=== PATIENT | male | born 1990 | race Caucasian/White ===

== ENCOUNTER 2017-02-02 13:09 | Emergency (ER) | payer BC ==
[2017-02-02 13:44] VITALS: BP 137/90
--- NOTE | 2017-02-02 14:46 | UC ---
[facility] Dental HPI - HPI Summary HPI Summary: Pt c/o left upper front tooth pain, and swelling. Pt has not had dental insurance for a year and has poor dentition. Pt states that upper left tooth and facial swelling. - History of Current Complaint Chief Complaint: UCDentalProblem Stated Complaint: TOOTH ACHE Time Seen by Provider: 02/02/17 14:13 Hx Obtained From: Patient Onset/Duration: Gradual Onset Pain Intensity: 10 Pain Scale Used: 0-10 Numeric Aggravating Factor(s): Chewing Alleviating Factor(s): Nothing Related History: Swelling - Allergies/Home Medications Allergies/Adverse Reactions: Allergies Allergy/AdvReac Type Severity Reaction Status Date / Time No Known Allergies Allergy Verified 02/02/17 13:44 Home Medications: Home Medications Ibuprofen TAB* [Advil TAB*] 400 mg PO Q6H PRN 02/02/17 [History Confirmed ] PMH/Surg Hx/FS Hx/Imm Hx Previously Healthy: Yes Other History Of: Negative For: HIV, Hepatitis B, Hepatitis C - Surgical History Surgical History: Yes Surgery Procedure, Year, and Place: right rotator cuff - Family History Known Family History: Positive: Cardiac Disease - Social History Occupation: Employed Full-time Lives: With Family Alcohol Use: Occasionally Substance Use Type: None Smoking Status (MU): Light Every Day Tobacco Smoker Type: Cigarettes Amount Used/How Often: 5 per day Length of Time of Smoking/Using Tobacco: 12 years - Immunization History Most Recent Influenza Vaccination: none Hx Tetanus, Diphtheria Vaccination: Yes Review of Systems Constitutional: Negative Skin: Negative Eyes: Negative ENT: Dental Pain Respiratory: Negative Cardiovascular: Negative Gastrointestinal: Negative Genitourinary: Negative Motor: Negative Neurovascular: Negative Musculoskeletal: Negative Neurological: Negative Psychological: Negative Is Patient Immunocompromised?: No All Other Systems Reviewed And Are Negative: Yes Physical Exam Triage Information Reviewed: Yes Appearance: Pain Distress - mild Vital Signs: Initial Vital Signs Temp 97.9 F 02/02/17 13:37 Pulse 92 02/02/17 13:37 Resp 16 02/02/17 13:37 BP 137/90 02/02/17 13:37 Pulse Ox 98 02/02/17 13:37 Vital Signs Reviewed: Yes Eye Exam: Normal ENT Exam: Normal Dental: Positive: Percussion Tenderness @ - left upper front teeth,, Gross Decay /Caries @ - generalized poor dentition, Dental Fracture @ - left lower molar, Abscess @ - left upper front gum Neck exam: Normal Respiratory Exam: Normal Musculoskeletal Exam: Normal Neurological Exam: Normal Psychological Exam: Normal Skin Exam: Normal Dental Complaint Course/Dx - Differential Dx/Diagnosis Differential Diagnosis/Dx: Dental Abscess, Dental Caries Provider Diagnoses: detnal abscess. poor dentition Discharge - Discharge Plan Condition: Stable Disposition: HOME Prescriptions: Amoxicillin PO (*) [Amoxicillin 875 MG (*)] 875 mg PO Q12H #20 tab Ibuprofen TAB* [Motrin TAB* 800 MG] 800 mg PO Q8H PRN #30 tab PRN Reason: Pain methylPREDNISolone TAB* [Medrol TAB*] 4 - 8 mg PO .SEE TORY #1 tory Patient Education Materials: Dental Abscess (ED) Forms: *Work Release Referrals: No Primary Care Phys,NOPCP [Primary Care Provider] - If Needed Additional Instructions: Please seek follow up care from a dental care provider as soon as possible.
== END 2017-02-02 14:39 | disposition home or self-care (01) ==
LOC: UCCORT 13:09
DX: L02.91 Cutaneous abscess, unspecified (principal); F17.210 Nicotine dependence, cigarettes, uncomplicated
CPT/HCPCS: 99212; G0463

== ENCOUNTER 2017-04-03 07:15 | Emergency (ER) | payer BC ==
[2017-04-03 07:28] VITALS: BP 148/87
[2017-04-03] MEDS ORDERED: Clindamycin CAP* 150 MG PO ONE (07:44)
--- NOTE | 2017-04-03 08:02 | UC ---
[facility] HPI - HPI Summary HPI Summary: dental pain x 3 days + left side facial swelling and pain had dental infection 2 weeks ago , was placed on abx , did not finish abx no fever, no chills - History of Current Complaint Chief Complaint: UCDentalProblem Stated Complaint: ORAL COMPLAINT Time Seen by Provider: 04/03/17 07:36 Hx Obtained From: Patient Onset/Duration: Gradual Onset, Lasting Days - 3, Still Present Severity: Moderate Pain Intensity: 8 Pain Scale Used: 0-10 Numeric Aggravating Factor(s): Chewing Alleviating Factor(s): Nothing Related History: Swelling - left side of face - Allergies/Home Medications Allergies/Adverse Reactions: Allergies Allergy/AdvReac Type Severity Reaction Status Date / Time No Known Allergies Allergy Verified 04/03/17 07:22 PMH/Surg Hx/FS Hx/Imm Hx Previously Healthy: Yes Other History Of: Negative For: HIV, Hepatitis B, Hepatitis C - Surgical History Surgical History: Yes Surgery Procedure, Year, and Place: right rotator cuff - Family History Known Family History: Positive: Cardiac Disease - Social History Alcohol Use: Occasionally Substance Use Type: None Smoking Status (MU): Light Every Day Tobacco Smoker Type: Cigarettes Amount Used/How Often: 5 per day Length of Time of Smoking/Using Tobacco: 12 years - Immunization History Most Recent Influenza Vaccination: none Hx Tetanus, Diphtheria Vaccination: Yes Review of Systems Constitutional: Negative Skin: Negative Eyes: Negative ENT: Dental Pain Respiratory: Negative Cardiovascular: Negative Is Patient Immunocompromised?: No All Other Systems Reviewed And Are Negative: Yes Physical Exam Triage Information Reviewed: Yes Appearance: No Pain Distress, Well-Nourished, Pain Distress Vital Signs: Initial Vital Signs Temp 97.3 F 04/03/17 07:22 Pulse 87 04/03/17 07:22 Resp 16 04/03/17 07:22 BP 148/87 04/03/17 07:22 Pulse Ox 100 04/03/17 07:22 Vital Signs Reviewed: Yes Eyes: Positive: Conjunctiva Clear ENT: Positive: Normal ENT inspection, Hearing grossly normal, Pharynx normal Dental: Positive: Gross Decay/Caries @ - multiple, Other: - left upper face facial swelling. Negative: Abscess @ Neck exam: Normal Neck: Positive: Supple, Nontender, No Lymphadenopathy Respiratory Exam: Normal Respiratory: Positive: Chest non-tender, Lungs clear, Normal breath sounds Cardiovascular Exam: Normal Cardiovascular: Positive: RRR, No Murmur, Pulses Normal Abdominal Exam: Normal Musculoskeletal Exam: Normal Neurological Exam: Normal Psychological Exam: Normal Skin Exam: Normal Dental Complaint Course/Dx - Differential Dx/Diagnosis Provider Diagnoses: dental pain Discharge - Discharge Plan Condition: Stable Disposition: HOME Prescriptions: Clindamycin Cap(NF) [Clindamycin Cap 300 mg Cap(NF)] 300 mg PO Q6H #40 cap Hydrocodone-Acetaminophen [[place] 5-325 mg] 1 tab PO Q6H PRN #20 tab MDD 4 PRN Reason: Pain Patient Education Materials: Toothache (ED) Forms: *Work Release Referrals: No Primary Care Phys,NOPCP [Primary Care Provider] - Additional Instructions: follow up with your dentist anna
== END 2017-04-03 07:52 | disposition home or self-care (01) ==
LOC: UCCORT 07:15
DX: K08.89 Other specified disorders of teeth and supporting structures (principal); F17.210 Nicotine dependence, cigarettes, uncomplicated
CPT/HCPCS: 99212; A9270-GY; G0463

== ENCOUNTER 2017-12-02 11:06 | Emergency (ER) | payer BC ==
[2017-12-02 11:36] VITALS: BP 142/82
--- NOTE | 2017-12-02 12:00 | UC ---
[facility] General HPI - History of Current Complaint Chief Complaint: UCGeneralIllness Stated Complaint: SKIN CONCERN, BODY ACHES Time Seen by Provider: 12/02/17 11:43 Hx Obtained From: Patient Onset/Duration: Gradual Onset, Lasting Days - 4, Still Present Timing: Constant Onset Severity: Severe Current Severity: Severe Pain Intensity: 4 Pain Location at: GENERALIZED BODY ACHES AND FATIGUE Character: BODY ACHES Aggravating: NOTHING Alleviating: NOTHING Associated Signs & Symptoms: Positive: Headache, Other - RASH MID LOWER ABD. Negative: Agitation, Abdominal Pain, Anticoagulation Therapy, Back Pain, Confusion, Cough, Chest Pain, Decreased Responsiveness, Dizziness, Diarrhea, Dysuria, Decreased Oral Intake, Diaphoresis, Edema, Fever, Hematemesis, Hemoptysis, Immunocompromised, Melena, Nausea, Palpitations, SOB - Allergy/Home Medications Allergies/Adverse Reactions: Allergies Allergy/AdvReac Type Severity Reaction Status Date / Time No Known Allergies Allergy Verified 12/02/17 11:29 Home Medications: Home Medications Dextroamphetamine/Amphetamine [Adderall 30 mg-] 1 tab PO DAILY 12/02/17 [ History Confirmed 12/02/17] PMH/Surg Hx/FS Hx/Imm Hx Previously Healthy: Yes Other History Of: Negative For: HIV, Hepatitis B, Hepatitis C - Surgical History Surgical History: Yes Surgery Procedure, Year, and Place: right rotator cuff - Family History Known Family History: Positive: Cardiac Disease - Social History Alcohol Use: None Substance Use Type: None Smoking Status (MU): Former Smoker Type: Cigarettes Amount Used/How Often: 5 per day Length of Time of Smoking/Using Tobacco: 12 years Have You Smoked in the Last Year: Yes When Did the Patient Quit Smoking/Using Tobacco: 4 months ago - Immunization History Most Recent Influenza Vaccination: none Hx Tetanus, Diphtheria Vaccination: Yes Review of Systems Constitutional: Fatigue Skin: Rash Eyes: Negative ENT: Negative Respiratory: Negative Cardiovascular: Negative Gastrointestinal: Negative Musculoskeletal: Arthralgia, Myalgia Neurological: Headache, Weakness Is Patient Immunocompromised?: No All Other Systems Reviewed And Are Negative: Yes Physical Exam Triage Information Reviewed: Yes Appearance: Ill-Appearing, Pain Distress, Obese Vital Signs: Initial Vital Signs Temp 97.5 F 12/02/17 11:29 Pulse 116 12/02/17 11:29 Resp 14 12/02/17 11:29 BP 142/82 12/02/17 11:29 Pulse Ox 98 08/14/18 11:29 Vital Signs Reviewed: Yes Eyes: Positive: Conjunctiva Clear ENT: Positive: Normal ENT inspection, Hearing grossly normal, Pharynx normal Neck: Positive: Supple, Nontender, No Lymphadenopathy Respiratory Exam: Normal Respiratory: Positive: Chest non-tender, Lungs clear, Normal breath sounds Cardiovascular: Positive: RRR, No Murmur, Pulses Normal Abdominal Exam: Normal Abdomen Description: Positive: Nontender, Soft Musculoskeletal Exam: Normal Musculoskeletal: Positive: Strength Intact, ROM Intact, No Edema Neurological: Positive: Alert, Muscle Tone Normal Skin: Positive: rashes - + MACULAR RASH / ERYTHEMA LOWER ABD Course/Dx - Differential Dx - Multi-Symptom Provider Diagnoses: FATIGUE. CONTACT DERMATITIS Discharge - Sign-Out/Discharge Documenting (check all that apply): Patient Departure - Discharge Plan Condition: Stable Disposition: HOME Prescriptions: DOXYcycline CAP(*) [DOXYcycline 100MG CAP(*)] 100 mg PO BID #42 cap Triamcinolone 0.1% CREAM (NF) [Kenalog 0.1% Cream (NF)] 1 applic .SEE ORDER BID #60 gm Patient Education Materials: Contact Dermatitis (ED), Musculoskeletal Pain (ED) , Fatigue (ED) Referrals: No Primary Care Phys,NOPCP [Primary Care Provider] - Additional Instructions: CONCERN ABOUT LYME DISEASE WILL CHECK FOR LYME START DOXY 2 X PER DAY CALL THE OFFICE FOR THE TEST RESULTS - Billing Disposition and Condition Condition: STABLE Disposition: Home
== END 2017-12-02 11:57 | disposition home or self-care (01) ==
LOC: UCCORT 11:06
DX: R53.83 Other fatigue (principal); L25.9 Unspecified contact dermatitis, unspecified cause; Z87.891 Personal history of nicotine dependence
CPT/HCPCS: 86617; 99212; G0463